=== PATIENT | female | born 1960 | race Caucasian/White ===

== ENCOUNTER 2018-11-29 08:38 | Emergency (ER) | payer MEDICAID ==
[~2018-11-29] VITALS: Ht 149.9 cm; Wt 60.0 kg
[2018-11-29] MEDS ORDERED: ONDANSETRON HCL 4MG/2ML INJ IV STA (09:39)
[2018-11-29] MEDS ORDERED: MORPHINE SULFATE 4 MG/ML CPJ (NOT FOR IM USE) IV STA (09:39)
[2018-11-29 10:23] VITALS: BP 149/67
[2018-11-29 11:13] LABS: EOSINOPHILS % 2.2 % (0.0-5.0); HEMATOCRIT. 41.2 % (36.0-48.0); HEMOGLOBIN. 13.9 g/dL (12.0-16.0); LYMPHOCYTES % 24.9 % (20.0-50.0); MEAN CORPUSCULAR HEMOGLOBIN 30.2 pg (28.0-32.0); MEAN CORPUSCULAR VOLUME 89.5 fL (81.0-99.0); MONOCYTES % 5.8 % (2.0-8.0); NEUTROPHILS % 66.1 % (40.0-76.0); RED CELL DISTRIBUTION WIDTH 17.3 % (11.6-14.6)
[2018-11-29 11:34] LABS: CHLORIDE 97 mEq/L (98-107)
[2018-11-29 11:48] LABS: PLATELET 207 x1000/uL (130-400)
== END 2018-11-29 13:24 | disposition home or self-care (01) ==
LOC: ER 08:38
DX: K80.20 Calculus of gallbladder without cholecystitis without obstruction (principal); E78.00 Pure hypercholesterolemia, unspecified; E11.22 Type 2 diabetes mellitus with diabetic chronic kidney disease; I12.0 Hypertensive chronic kidney disease with stage 5 chronic kidney disease or end stage renal disease; N18.6 End stage renal disease; Z99.2 Dependence on renal dialysis
CPT/HCPCS: 36415; 76705; 80053; 83690; 85025; 96374; 96375; 99284; J2270; J2405